=== PATIENT | female | born 1965 | race Caucasian/White ===

== ENCOUNTER 2018-04-14 13:20 | Emergency (ER) | payer OTHER ==
[~2018-04-14] VITALS: Ht 162.6 cm; Wt 90.9 kg
[2018-04-14 13:22] VITALS: TEMP 98.5
[2018-04-14] MEDS ORDERED: ALLEGRA 180MG180 MG PO (13:39)
[2018-04-14] MEDS ORDERED: FLONASE SENSIM9.9 ML NS (13:39)
[2018-04-14] MEDS ORDERED: SYNTHROID 0.10.15 MG PO (13:39)
[2018-04-14] MEDS ORDERED: FLEXERIL 1010 MG/TAB PO (13:45)
[2018-04-14 14:06] VITALS: BP 144/80; PULSE 80
== END 2018-04-14 14:33 | disposition home or self-care (01) ==
LOC: COL.ER 13:20
DX: S20.212A Contusion of left front wall of thorax, initial encounter (principal); E03.9 Hypothyroidism, unspecified; V43.52XA Car driver injured in collision with other type car in traffic accident, initial encounter; Y92.410 Unspecified street and highway as the place of occurrence of the external cause